=== PATIENT | male | born 1965 | race Caucasian/White ===

== ENCOUNTER 2017-07-17 12:18 | Observation (INO) | payer OTHER ==
[~2017-07-17 12:18] MED LIST: LORTA5 PO; VIBR100C PO
[2017-07-17 12:22] VITALS: BP 130/82; PULSE 58; RESP 16; TEMP 98; O2SAT 98
--- NOTE | 2017-07-17 12:24 | PD ---
Physical Exam Time Seen by Provider: 12:22 Narrative 52yo M sent by [facility] c/o left sided chests pain that radiates to left neck and arm x3days. +SOB, fatigue. Denies cardiac hx. Patient seen in triage. VS reviewed. Patient awaiting bed placement. MDM Supervised Visit with DENNISE: Patsy Sandoval Jul 17, 2017 12:24
[2017-07-17 12:37] VITALS: O2SAT 98
--- NOTE | 2017-07-17 12:42 | PD ---
HPI Chief Complaint: Cardiac Complaint Time Seen by Provider: 12:32 Travel History International Travel<30 days: No Contact w/Intl Traveler<30days: No Traveled to known affect area: No History of Present Illness HPI 52-year-old male complains of chest pain. Patient states the pain started 3 days ago. Patient states the pain aching pain with radiation to left-sided neck and left arm. Patient states that the pain is not associated with exertion. Patient denies any coughing congestion. Patient denies any history of CAD. Patient denies history hypertension, diabetes, hyperlipidemia. Patient is a smoker. Patient states that he stop smoking 2 weeks ago. Patient denies family history of heart disease. On a scale of 1-10 the chest pain is a 6. Patient went to local urgent care this morning. Patient was given aspirin 81 mg 3 and referred to ED for evaluation. PFSH Past Medical History Diabetes: No Kidney Stones: Yes Immunizations Current: Yes Past Surgical History Cholecystectomy: Yes Tonsillectomy: Yes Social History Alcohol Use: Yes (OCCASIONALLY) Tobacco Use: No (1PPD SINCE TEENAGER; QUIT 3 MOS AGO) Substance Use: No Allergies-Medications (Allergen,Severity, Reaction): Coded Allergies: cephalexin (Unverified Allergy, Severe, 07/17/17) Reported Meds & Prescriptions Reported Meds & Active Scripts Active No Active Prescriptions or Reported Medications Review of Systems General / Constitutional: No: Fever Eyes: No: Visual changes HENT: No: Headaches Cardiovascular: Positive: Chest Pain or Discomfort Respiratory: No: Shortness of Breath Gastrointestinal: No: Abdominal Pain Genitourinary: No: Dysuria Musculoskeletal: No: Pain Skin: No Rash Neurologic: No: Weakness Psychiatric: No: Depression Endocrine: No: Polydipsia Hematologic/Lymphatic: No: Easy Bruising Physical Exam Narrative GENERAL: Well-nourished, well-developed patient. SKIN: Focused skin assessment warm/dry. HEAD: Normocephalic. EYES: No scleral icterus. No injection or drainage. NECK: Supple, trachea midline. No JVD or lymphadenopathy. CARDIOVASCULAR: Regular rate and rhythm without murmurs, gallops, or rubs. RESPIRATORY: Breath sounds equal bilaterally. No accessory muscle use. GASTROINTESTINAL: Abdomen soft, non-tender, nondistended. MUSCULOSKELETAL: No cyanosis, or edema. BACK: Nontender without obvious deformity. No CVA tenderness. Neurologic exam normal. Data Data Last Documented VS Vital Signs Date Time Temp Pulse Resp B/P (MAP) Pulse Ox O2 Delivery O2 Flow Rate FiO2 07/17/17 12:37 98 Room Air 07/17/17 12:37 2.00 07/17/17 12:22 98.0 58 16 Orders Orders Electrocardiogram (07/17/17 12:33) Complete Blood Count With Diff (07/17/17 12:33) Comprehensive Metabolic Panel (07/17/17 12:33) Creatine Kinase (Cpk) (07/17/17 12:33) Troponin I (07/17/17 12:33) Prothrombin Time / Inr (Pt) (07/17/17 12:33) Act Partial Throm Time (Ptt) (07/17/17 12:33) Chest, Single Ap (07/17/17 12:33) Iv Access Insert/Monitor (07/17/17 12:33) Ecg Monitoring (07/17/17 12:33) Oximetry (07/17/17 12:33) Labs Laboratory Tests Test 07/17/17 12:45 White Blood Count 9.1 TH/MM3 Red Blood Count 5.13 MIL/MM3 Hemoglobin 15.4 GM/DL Hematocrit 44.9 % Mean Corpuscular Volume 87.5 FL Mean Corpuscular Hemoglobin 30.0 PG Mean Corpuscular Hemoglobin Concent 34.3 % Red Cell Distribution Width 13.0 % Platelet Count 315 TH/MM3 Mean Platelet Volume 7.9 FL Neutrophils (%) (Auto) 47.5 % Lymphocytes (%) (Auto) 41.4 % Monocytes (%) (Auto) 7.4 % Eosinophils (%) (Auto) 2.9 % Basophils (%) (Auto) 0.8 % Neutrophils # (Auto) 4.3 TH/MM3 Lymphocytes # (Auto) 3.8 TH/MM3 Monocytes # (Auto) 0.7 TH/MM3 Eosinophils # (Auto) 0.3 TH/MM3 Basophils # (Auto) 0.1 TH/MM3 CBC Comment DIFF FINAL Differential Comment Prothrombin Time 10.3 SEC Prothromb Time International Ratio 0.9 RATIO Activated Partial Thromboplast Time 28.5 SEC Blood Urea Nitrogen 15 MG/DL Creatinine 1.08 MG/DL Random Glucose 87 MG/DL Total Protein 7.7 GM/DL Albumin 3.7 GM/DL Calcium Level 8.8 MG/DL Alkaline Phosphatase 89 U/L Aspartate Amino Transf (AST/SGOT) 21 U/L Alanine Aminotransferase (ALT/SGPT) 41 U/L Total Bilirubin 0.4 MG/DL Sodium Level 140 MEQ/L Potassium Level 4.3 MEQ/L Chloride Level 108 MEQ/L Carbon Dioxide Level 24.3 MEQ/L Anion Gap 8 MEQ/L Estimat Glomerular Filtration Rate 72 ML/MIN Total Creatine Kinase 206 U/L Troponin I LESS THAN 0.02 NG/ML MDM Medical Decision Making Medical Screen Exam Complete: Yes Emergency Medical Condition: Yes Interpretation(s) Last Impressions Chest X-Ray 07/17/17 1233 Signed Impressions: Service Date/Time: Monday, July 17, 2017 12:45 - CONCLUSION: No acute disease. Hypoaeration Kevin Gomez MD 1341 PM. CBC within normal limit. CMP within normal limit. Cardiac enzymes are normal. Differential Diagnosis Differential diagnosis including angina, OR, PE, pneumothorax. Narrative Course 52-year-old male with chest pain. Patient will be admitted to the chest pain center. Diagnosis Primary Impression: Chest pain Qualified Codes: R07.9 - Chest pain, unspecified Admitting Information Admitting Physician Requests: Observation Scripts No Active Prescriptions or Reported Meds Link Grady MD Jul 17, 2017 12:42
--- NOTE | 2017-07-17 13:03 | RADRPT ---
EXAM DATE/TIME: 07/17/2017 12:45 [facility] COMPARISON: No previous studies available for comparison. INDICATIONS : Chest pain. MEDICAL HISTORY : None. SURGICAL HISTORY : None. ENCOUNTER: Initial ACUITY: 3 days PAIN SCORE: 9/10 LOCATION: Left upper chest FINDINGS: A single view of the chest demonstrates the lungs to be hypoaerated with elevated diaphragms without evidence of mass, infiltrate or effusion. The cardiomediastinal contours are unremarkable. Osseous structures are intact. CONCLUSION: No acute disease. Hypoaeration Kevin Gomez MD on July 17, 2017 at 13:01 Board Certified Radiologist. This report was verified electronically.
[2017-07-17 13:05] LABS: APTT (PATIENT) 28.5 SEC (24.3-30.1); AUTOMATED NEUTROPHIL # 4.3 TH/MM3 (1.8-7.7); BASOPHIL # 0.1 TH/MM3 (0-0.2); BASOPHIL % 0.8 % (0.0-2.0); EOSINOPHIL # 0.3 TH/MM3 (0-0.4); EOSINOPHIL % 2.9 % (0.0-4.0); HEMATOCRIT 44.9 % (39.0-51.0); HEMO FLAGS DIFF FINAL; INTERNATIONAL NORMALIZED RATIO 0.9 RATIO; LYMPH % 41.4 % (9.0-44.0); LYMPHOCYTE # 3.8 TH/MM3 (1.0-4.8); MEAN CELL VOLUME 87.5 FL (80.0-100.0); MEAN CORPUSCULAR HGB CONC 34.3 % (32.0-36.0); MONO % 7.4 % (0.0-8.0); NEUT % 47.5 % (16.0-70.0); PLATELET COUNT 315 TH/MM3 (150-450); PROTHROMBIN TIME - PATIENT 10.3 SEC (9.8-11.6); RED BLOOD COUNT 5.13 MIL/MM3 (4.50-5.90); WHITE BLOOD COUNT 9.1 TH/MM3 (4.0-11.0)
[2017-07-17 13:15] LABS: ANION GAP 8 MEQ/L (5-15); BICARBONATE 24.3 MEQ/L (21.0-32.0); BLOOD UREA NITROGEN 15 MG/DL (7-18); CHLORIDE 108 MEQ/L (98-107); GLOMERULAR FILTRATION RATE 72 ML/MIN (>89); POTASSIUM 4.3 MEQ/L (3.5-5.1); SODIUM (NA) 140 MEQ/L (136-145)
[2017-07-17 13:20] LABS: ALKALINE PHOSPHATASE 89 U/L (45-117); ALT (GPT) 41 U/L (12-78); AST (GOT) 21 U/L (15-37); CREATINE KINASE 206 U/L (39-308); TOTAL BILIRUBIN ADULT 0.4 MG/DL (0.2-1.0)
[2017-07-17] MEDS ORDERED: ONDANSETRON HCL 4 MG/2 ML VIAL IV PRN (13:45)
[2017-07-17] MEDS ORDERED: SODIUM CHLORIDE 0.9% FLUSH 10 ML FLUSH IV FLUSH PRN (13:45)
[2017-07-17] MEDS ORDERED: ACETAMINOPHEN 500 MG CPLT PO PRN (13:45)
[2017-07-17] MEDS ORDERED: NITROGLYCERIN 0.4 MG SL 25 TABS/BTL SL PRN (13:45)
[2017-07-17 15:23] VITALS: BP 118/84
[2017-07-17] MEDS ORDERED: KETOROLAC TROMETHAMINE 30 MG/ML (IVP) VIAL IV PUSH ONE (16:00)
--- NOTE | 2017-07-17 16:06 | HHI.HP ---
HPI Primary Care Physician No Primary Care Physician Chief Complaint Chest pain History of Present Illness 52-year-old male with no known significant medical history presents emergency room for further evaluation of multiple complaints including chest pain. Describes 2 different chest discomforts. Onset 3 days ago. Location substernal. Characterized as a intermittent pressure. No radiation of pain. No associated symptoms of nausea, vomiting, shortness of breath, or diaphoresis. No relieving factors. Denies any similar pain in the past. Second location of chest pain located on left anterior chest, able to localize pain with fingertips. Described as a constant, dull ache. Left anterior chest pain has radiation to left-sided neck and left shoulder. No associated symptoms. No known precipitating or relieving factors. No trauma or injury to area. Left anterior chest pain reproduced with palpation. Denies any similar pain in the past. Shortly seen at urgent care. EKG completed and he was advised to come to the ER for further evaluation. Review of Systems General: No fatigue,weakness, fever, chills, or recent illness. Reports concern not seen a primary care provider in many years and not taking care of himself how he should. Reports difficulty obtaining a PCP that takes his Medicaid insurance. HEENT: No MAZA, no nasal congestion or drainage, no dysphasia CV: As stated above. No palpitations, intermittent leg pain, or dizziness. RESP: No SOB, cough, sputum production, or history of asthma. Remote smoker quit 5 years ago although endorses chain-smoking 1 month ago, quitting 2 weeks ago. GI: No nausea, vomiting, bowel changes, diarrhea, constipation, pain, distention , melena, or blood in the stool. No change in appetite, no unintentional weight gain, or weight loss. : No dysuria or hematuria. History of kidney stones. Reports hesitancy, frequency, and dribbling 2 years. Has not followed with a PCP. Requesting a PSA test. EXT: No lower leg edema, no paraesthesias MS: Localized tenderness to left anterior chest, left shoulder, and left-sided neck easily reproduced with palpation. No change in ROM, injury, trauma, or recent fall. NEURO: No difficulty with balance, LOC, motor/sensory deficits PSYCH: Current situational stress regarding recent breakup with girlfriend. Repeating talking about recent breakup with girlfriend of 5 years. No suicidal ideation. Past Family Social History Allergies: Coded Allergies: cephalexin (Unverified Allergy, Severe, 07/17/17) Past Medical History Kidney stones Past Surgical History Cholecystectomy Reported Medications Active No Active Prescriptions or Reported Medications Active Ordered Medications Current Medications Medications (Trade) Dose Ordered Sig/Wen Route Start Time Stop Time Status Last Admin (NS Flush) 2 ml UNSCH PRN IV FLUSH 07/17/17 13:45 (NS Flush) 2 ml BID IV FLUSH 07/17/17 21:00 (Tylenol) 500 mg Q4H PRN PO 07/17/17 13:45 (Zofran Inj) 4 mg Q6H PRN IV 07/17/17 13:45 (Nitrostat Sl) 0.4 mg Q5M PRN SL 07/17/17 13:45 (Aspirin) 325 mg DAILY PO 07/18/17 09:00 Family History Noncontributory for early onset cardiovascular disease. Social History No known diabetes, hypertension, coronary artery disease, or hyperlipidemia. Quit smoking 5 years ago. Smoked 1 pack daily for most of his adult life. Started back smoking 1 month ago, quitting 2 weeks ago. Occasional alcohol. Occasional marijuana use. Endorses the next lifestyle. , from lung cancer 5 years ago. He has a 13 year old daughter. Past Cardiac Testing Stress testing 10 years ago. Physical Exam Vital Signs Vital Signs Date Time Temp Pulse Resp B/P (MAP) Pulse Ox O2 Delivery O2 Flow Rate FiO2 07/17/17 15:23 52 14 118/84 (95) 99 Nasal Cannula 2.00 07/17/17 12:37 98 Room Air 07/17/17 12:37 Nasal Cannula 2.00 07/17/17 12:22 98.0 58 16 130/82 (98) 98 Physical Exam GENERAL: Alert WN, WD, NAD, pleasant, male who appears older than stated age. HEAD: NC, AT EYES: Sclera clear, conjunctiva without injection, pupils equal and round ENT: Mucous membranes pink and moist NECK: Supple, no masses, trachea midline CV: RRR, without murmur, rub, gallop, no JVD, S1-S2 no S3-S4. RESP: Clear lungs throughout bilateral, no crackles, wheeze, rhonchi, symmetrical chest rise, nonlabored, able to speak in full sentences ABD: Soft, NT, ND, no masses, positive bowel tones BACK: No CVAT EXT: Pulses +24, no dependent edema MS: Normal tone 4 extremities, nontender, no obvious deformities, full range of motion NEURO: CN II through CN XII grossly intact, motor strength 5/5 PSYCH: A+O 3, pleasant affect, appropriate speech, appropriate mood and affect , insight and judgment SKIN: Normal turgor, normal texture, no lesions, no rashes, brisk cap refill, even hair distribution Laboratory Laboratory Tests Test 07/17/17 12:45 White Blood Count 9.1 Red Blood Count 5.13 Hemoglobin 15.4 Hematocrit 44.9 Mean Corpuscular Volume 87.5 Mean Corpuscular Hemoglobin 30.0 Mean Corpuscular Hemoglobin Concent 34.3 Red Cell Distribution Width 13.0 Platelet Count 315 Mean Platelet Volume 7.9 Neutrophils (%) (Auto) 47.5 Lymphocytes (%) (Auto) 41.4 Monocytes (%) (Auto) 7.4 Eosinophils (%) (Auto) 2.9 Basophils (%) (Auto) 0.8 Neutrophils # (Auto) 4.3 Lymphocytes # (Auto) 3.8 Monocytes # (Auto) 0.7 Eosinophils # (Auto) 0.3 Basophils # (Auto) 0.1 CBC Comment DIFF FINAL Differential Comment Prothrombin Time 10.3 Prothromb Time International Ratio 0.9 Activated Partial Thromboplast Time 28.5 Blood Urea Nitrogen 15 Creatinine 1.08 Random Glucose 87 Total Protein 7.7 Albumin 3.7 Calcium Level 8.8 Alkaline Phosphatase 89 Aspartate Amino Transf (AST/SGOT) 21 Alanine Aminotransferase (ALT/SGPT) 41 Total Bilirubin 0.4 Sodium Level 140 Potassium Level 4.3 Chloride Level 108 Carbon Dioxide Level 24.3 Anion Gap 8 Estimat Glomerular Filtration Rate 72 Total Creatine Kinase 206 Troponin I LESS THAN 0.02 Result Diagram: 07/17/17 1245 07/17/17 1245 Imaging Last Impressions Chest X-Ray 07/17/17 1233 Signed Impressions: Service Date/Time: Monday, July 17, 2017 12:45 - CONCLUSION: No acute disease. Hypoaeration Kevin Gomez MD Course EKG (ER) Normal sinus rhythm, normal axis, Q waves lead 3 and AVF, possible inferior TX most likely a respiratory variant EKG (completed in urgent care before arrival) Normal sinus rhythm, normal axis, Q waves inferiorly possible inferior TX, V2- V6 ST elevation suggesting early repolarization Caprini VTE Risk Assessment Caprini VTE Risk Assessment: No/Low Risk (score <= 1) Caprini Risk Assessment Model Point Value = 1 Point Value = 2 Point Value = 3 Point Value = 5 Age 41-60 Minor surgery BMI > 25 kg/m2 Swollen legs Varicose veins or History of unexplained or recurrent spontaneous Oral contraceptives or hormone replacement Sepsis (< 1 month) Serious lung disease, including pneumonia (< 1 month) Abnormal pulmonary function Acute myocardial infarction Congestive heart failure (< 1 month) History of inflammatory bowel disease Medical patient at bed rest Age 61-74 Arthroscopic surgery Major open surgery (> 45 min) Laparoscopic surgery (> 45 min) Malignancy Confined to bed (> 72 hours) Immobilizing plaster cast Central venous access Age >= 75 History of VTE Family history of VTE Factor V Leiden Prothrombin [id number] Lupus anticoagulant Anticardiolipin antibodies Elevated serum homocysteine Heparin-induced thrombocytopenia Other congenital or acquired thrombophilia Stroke (< 1 month) Elective arthroplasty Hip, pelvis, or leg fracture Acute spinal cord injury (< 1 month) Prophylaxis Regimen Total Risk Factor Score Risk Level Prophylaxis Regimen 0-1 Low Early ambulation 2 Moderate Order ONE of the following: *Sequential Compression Device (SCD) *Heparin 5000 units SQ BID 3-4 Higher Order ONE of the following medications: *Heparin 5000 units SQ TID *Enoxaparin/Lovenox 40 mg SQ daily (WT < 150 kg, CrCl > 30 mL/min) *Enoxaparin/Lovenox 30 mg SQ daily (WT < 150 kg, CrCl > 10-29 mL/min) *Enoxaparin/Lovenox 30 mg SQ BID (WT < 150 kg, CrCl > 30 mL/min) AND/OR *Sequential Compression Device (SCD) 5 or more Highest Order ONE of the following medications: *Heparin 5000 units SQ TID (Preferred with Epidurals) *Enoxaparin/Lovenox 40 mg SQ daily (WT < 150 kg, CrCl > 30 mL/min) *Enoxaparin/Lovenox 30 mg SQ daily (WT < 150 kg, CrCl > 10-29 mL/min) *Enoxaparin/Lovenox 30 mg SQ BID (WT < 150 kg, CrCl > 30 mL/min) AND *Sequential Compression Device (SCD) Assessment and Plan Assessment and Plan #1 Atypical chest pain-admitted to chest pain center. We'll rule out with 3 sets of EKGs, cardiac enzymes, and monitor overnight. Seen and evaluated by Dr. Ericka Overton. Discussed most likely will complete exercise stress test in a.m. Associated agreeable to plan of care. #2 Tobacco use-strongly encouraged and stressed the importance of continuing with tobacco cessation. #3 Situation stress-encouraged getting plenty of rest, increasing his daily activity, and utilizing support from his family and friends. Strongly encouraged him to establish with a PCP for his multiple concerns, preventative health maintenance, basic laboratory and lipid profile and medical management. Will order a PSA at his request. Made aware he will have to follow up with a PCP or specialist depending on results. Patient agreeable. Polina Romreo Jul 17, 2017 16:06
[2017-07-17 16:07] VITALS: BP 130/86; PULSE 57; RESP 18; TEMP 97.6; O2SAT 98
[2017-07-17 17:16] LABS: CREATINE KINASE 179 U/L (39-308)
[2017-07-17 17:29] LABS: CKMB 0.7 NG/ML (0.5-3.6)
[2017-07-17 19:22] LABS: CREATINE KINASE 185 U/L (39-308)
[2017-07-17 19:35] LABS: CKMB 1.1 NG/ML (0.5-3.6)
[2017-07-17] MEDS ORDERED: SODIUM CHLORIDE 0.9% FLUSH 10 ML FLUSH IV FLUSH SCH (21:00)
[2017-07-17 21:14] VITALS: BP 128/88; PULSE 60; RESP 18; TEMP 98; O2SAT 98
[2017-07-17 21:54] VITALS: O2SAT 99
[2017-07-18 01:32] VITALS: BP 130/85; PULSE 77; RESP 18; TEMP 98; O2SAT 98
[2017-07-18 04:55] VITALS: BP 132/86; PULSE 70; RESP 18; TEMP 98.2; O2SAT 98
[2017-07-18 07:23] VITALS: BP 126/81; PULSE 51; RESP 19; TEMP 97.9; O2SAT 97
[2017-07-18 08:00] VITALS: PULSE 78
[2017-07-18 08:42] VITALS: O2SAT 98
[2017-07-18] MEDS ORDERED: ASPIRIN 325 MG TAB PO SCH (09:00)
--- NOTE | 2017-07-18 09:18 | HHI.DCPOC ---
Discharge Care Plan Diagnosis: (1) Atypical chest pain (2) Situational stress Goals to Promote Your Health * To prevent worsening of your condition and complications * To maintain your health at the optimal level Directions to Meet Your Goals Take your medications as prescribed Follow your dietary instruction Follow activity as directed Keep your appointments as scheduled Take your immunizations and boosters as scheduled If your symptoms worsen call your PCP, if no PCP go to Urgent Care Center or Emergency Room Smoking is Dangerous to Your Health. Avoid second hand smoke Call the 24-hour hour crisis hotline for domestic abuse at Polina Romero Jul 18, 2017 09:18
--- NOTE | 2017-07-18 10:28 | HHI.DS ---
Discharge Summary Admission Date Jul 17, 2017 at 13:56 Discharge Date: Jul 18, 2017 Admitting Diagnosis chest pain (1) Atypical chest pain Diagnosis: Principal ICD Codes: R07.89 - Other chest pain Status: Acute (2) Situational stress Diagnosis: Principal ICD Codes: F43.9 - Reaction to severe stress, unspecified Status: Acute Brief History 52-year-old male with no significant past medical history presents to emergency room for further evaluation of chest pain. Admitted to chest pain center. Ruled out with 3 sets of EKGs, cardiac enzymes, and seen by body rolling machine tender. Proceed with exercise stress test. No signs of ischemia. Discharged home and encouraged to establish with a PCP. CBC/BMP: 07/17/17 1245 07/17/17 1245 Significant Findings Laboratory Tests Test 07/17/17 12:45 07/17/17 15:59 07/17/17 18:35 Chloride Level 108 MEQ/L (98-107) Estimat Glomerular Filtration Rate 72 ML/MIN (>89) Troponin I LESS THAN 0.02 NG/ML LESS THAN 0.02 NG/ML LESS THAN 0.02 NG/ML Imaging Last Impressions Chest X-Ray 07/17/17 1233 Signed Impressions: Service Date/Time: Monday, July 17, 2017 12:45 - CONCLUSION: No acute disease. Hypoaeration Kevin Gomez MD PE at Discharge GENERAL: Alert NAD, pleasant CV: RRR, without murmur RESP: Clear lungs throughout bilateral ABD: Soft NEURO: motor strength 5/5, gait WNL PSYCH: A+O 3, pleasant affect SKIN: Normal turgor, normal texture Pt Condition on Discharge: Good Discharge Disposition: Discharge Home Discharge Instructions DIET: Follow Instructions for: Heart Healthy Diet Activities you can perform: Regular-No Restrictions Polina Romero Jul 18, 2017 10:27
--- NOTE | 2017-07-19 18:19 | TR ---
Date Performed: 07/18/2017 Time Performed: 08:35:15 DOCTOR: Ericka Overton DRUG LIST: CLINICAL HISTORY: REASON FOR TEST: REASON FOR ENDING: OBSERVATION: CONCLUSION: Pawan protocol completed. Stopped sec to exceeding target heart rate and leg fatigue . Maximum FM=388 Target HR Achieved=88.0% Maximum SH=147/88 Total Exercise Time=8:54. No reprod chest discomfort. Upsloping st segment, no st changes to sugg ischemia. No ectopy. Normal bp response. Gre at exercise tolerance. Recovery quick and unremarkable. COMMENTS:
--- NOTE | 2017-07-19 18:22 | EKG ---
Date Performed: 07/17/2017 Time Performed: 16:14:29 PTAGE: 52 years EKG: SINUS BRADYCARDIA WITH SINUS ARRHYTHMIA BORDERLINE ECG Since PREVIOUS TRACING , no significant change noted PREVIOUS TRACIN05/24/2014 13.21 DOCTOR: Ericka Overton Interpretating Date/Time 07/19/2017 18:21:55
--- NOTE | 2017-07-19 18:22 | EKG ---
Date Performed: 07/17/2017 Time Performed: 18:48:16 PTAGE: 52 years EKG: SINUS BRADYCARDIA BORDERLINE ECG Since PREVIOUS TRACING , no significant change noted PREVIOUS TRACIN07/17/2017 16.14 DOCTOR: Ericka Overton Interpretating Date/Time 07/19/2017 18:20:58
== END 2017-07-18 11:40 | disposition home or self-care (01) ==
LOC: NEPE 12:18 → NEDA 13:56 → NEPHCDU 16:05
PROVIDERS: ADMIT Internal Medicine Interventional Cardiology; ATTEND Internal Medicine Interventional Cardiology
DX: R07.89 Other chest pain (principal); R53.83 Other fatigue; F43.9 Reaction to severe stress, unspecified; F17.200 Nicotine dependence, unspecified, uncomplicated; Z87.442 Personal history of urinary calculi; R06.02 Shortness of breath; Z12.5 Encounter for screening for malignant neoplasm of prostate
CPT/HCPCS: 71010; 80053; 82550; 82552; 84484; 85025; 85610; 85730; 93005; 93017; 96374; 96375; 96376; 99285; G0103; G0378; J1885; J2405